=== PATIENT | male | born 1975 | race Caucasian/White ===

== ENCOUNTER 2023-04-27 11:10 | Emergency (ER) | payer OTHER, SELFPAY ==
--- NOTE | ~2023-04-27 | XR_ITS ---
EXAMINATION: XR RIBS, LEFT CLINICAL INFORMATION: Pain, status post fall on ribs COMPARISON: AP portable chest 03/10/2020 TECHNIQUE: PA view the chest and 3 views of the left ribs were obtained. FINDINGS: Lungs are clear. No consolidation, pneumothorax, or pleural effusion. The cardiomediastinal silhouette and pulmonary vasculature are normal. Radiopaque skin marker is placed at the level of the distal aspect of the 11th and 12th left ribs. Question of nondisplaced fractures of the distal 11th and 12th ribs. XR/XR ribs LT min 3V w CXR1V IMPRESSION: Question of nondisplaced fractures of the distal 11th and 12th ribs.
--- NOTE | ~2023-04-27 | XR_ITS ---
EXAMINATION: XR ANKLE, LEFT CLINICAL INFORMATION: Pain, status post fall COMPARISON: None available. TECHNIQUE: AP, lateral, and mortise views of the left ankle. FINDINGS: No fracture. Alignment is anatomic. No erosions. Joint spaces are maintained. Soft tissue swelling is seen about the ankle. XR/XR ankle LT min 3V IMPRESSION: No bony abnormality.
--- NOTE | ~2023-04-27 | XR_ITS ---
EXAMINATION: XR FOOT, LEFT CLINICAL INFORMATION: Foot pain and swelling COMPARISON: None available. TECHNIQUE: AP, lateral, and oblique views of the left foot. FINDINGS: The bones and soft tissues are normal. No fracture. Alignment is anatomic. Joint spaces are maintained. XR/XR foot LT min 3V IMPRESSION: Unremarkable plain radiographs of the left foot.
--- NOTE | ~2023-04-27 | CT_ITS ---
Examination: CT chest, abdomen and pelvis with IV contrast. COMPARISON: Left upper quadrant abdominal pain. Fall with ecchymosis. Rule out rib fracture COMPARISON: Chest x-ray 04/27/2023. MRI abdomen 06/29/2018. TECHNIQUE: 5 mm thin and reformatted 3 minutes thin sagittal and coronal images of chest, abdomen and pelvis were obtained following IV 85 mL Omnipaque 350. DLP 753. This CT examination was performed using dose optimization technique as appropriate, variously including the following: Automated exposure control Adjustment of MA and/or KV according to patient size(this includes techniques or standardized protocols for targeted exams where dose is matched to indication/reason for exam; extremities or head. Use of iterative reconstruction techniques. FINDINGS: CHEST: LUNGS: The lungs are well-expanded and clear of acute process. No pulmonary nodules, mass or consolidation seen. Mediastinum: The thyroid lobes are symmetric and normal. The central trachea and the bronchi widely patent. Heart size and the great vessels are normal caliber. No pericardial effusion seen. No abnormal size mediastinal or hilar lymph nodes seen. Pleura: There is no pleural effusion, thickening or calcification. Axilla: There is no abnormal axillary lymph nodes. The chest wall appears unremarkable. Osseous structures: There is a nondisplaced left lateral 10th rib fracture best visualized on sagittal view 02/28. Abdomen and pelvis: Liver, ducts and gallbladder: The liver is normal size, contour and density. No focal contusion, lesion or intrahepatic ductal dilatation seen. The gallbladder is unremarkable. Spleen: Surgically absent. Pancreas: Unremarkable. Adrenal glands: Unremarkable. Kidneys and ureters: Both kidney nephrograms are symmetrical in size, shape and position. No radiopaque renal calculi, hydroureter or hydronephrosis seen. Lymphovascular structures: Unremarkable. Abdominal wall: Unremarkable. GI tract: There is moderate scattered stool seen throughout the colon without significant distention. The small bowel loops are normal caliber. Appendix is not visualized. Pelvis: The urinary bladder is mildly distended without any radiopaque calculi bladder wall thickening. The prostate gland is minimally prominent with central gland calcification. No free air or free fluid seen. Small shotty inguinal lymph nodes are seen bilaterally. Osseous structures: No visible acute fracture or dislocation seen. CT/CT abdomen pelvis w IV con IMPRESSION: 1. Nondisplaced left lateral 10th rib fracture. 2. The lungs are clear. 3. There is no acute intra-abdominal process seen. 4. Mild constipation.
[2023-04-27 11:19] VITALS: BP 126/71; PULSE 97; RESP 20; TEMP 36.7; O2SAT 93; BMI 24.7
--- NOTE | 2023-04-27 11:20 | ED_ITS ---
HPI - Fall General Chief Complaint: Extremity Injury, Lower Stated Complaint: L Side Pain Diff Breathing S/P Fall 04/26/23 Time Seen by Provider: 04/27/23 13:25 Source: patient, family, RN notes reviewed and old records reviewed Mode of arrival: ambulatory History of Present Illness HPI Narrative: 47-year-old male with past medical history splenectomy, presenting to the ED complaining of left foot/ankle and left side/rib cage pain s/p falling out of boat early this morning around 02:00AM. Admits was getting down/out of boat, jumped down and twisted ankle then fell onto hitch on left side. Denies head trauma or LOC. takes baby ASA, denies other anticoagulation. Reports pain worse with palpation, movement and breathing. Denies headache, neck pain, SOB, nausea/vomiting, dysuria, incontinence MD complaint: fall Onset (ago): day(s) Related Data Previous Rx's Medication Instructions Recorded hydrocodone 5 mg-acetaminophen 325 1 tab PO Q8H PRN pain, severe 3 04/27/23 mg tablet days #9 tabs lidocaine 5 % topical patch 1 patch topical DAILY PRN pain #30 04/27/23 (Lidoderm) ea Allergies Allergy/AdvReac Type Severity Reaction Status Date / Time No Known Allergies Allergy Unverified 06/06/20 14:56 [No Known Allergies*] Review of Systems Review of Systems: Constitutional: No Fever, No Chills, No Malaise ENT/Mouth: No Ear Pain, No Nasal Congestion,No sore throat, No Rhinorrhea, No Swallowing Difficulty Eyes: No Eye Pain, No Swelling, No Redness, No Foreign Body, No Vision Changes Cardiovascular: No Chest Pain, No SOB Respiratory: No Cough, No Sputum, No Dyspnea Gastrointestinal: No Nausea, No Vomiting, No Diarrhea, No Constipation, + Abdominal pain Genitourinary: No Dysuria, No Hematuria, No Urinary Incontinence/retention, No Flank Pain Musculoskeletal: + joint pain, + Myalgias, + Joint Swelling Skin: No Skin Lesions, No rash Neuro: No Weakness, No Numbness, No Paresthesias, No Loss of Consciousness, No Dizziness, No Headache Yes all other systems are reviewed and are negative Constitutional: Constitutional: Reports as per HPI Neurologic: Denies Abnormal speech present PMFSH Past Medical History Attestation statement: The following information was validated with the patient. Source: old records reviewed Social History Social History Advance Directives: No Physical Exam 2 Vital Signs: Vital Signs: Last Vital Signs Temp 97.9 F 04/27/23 16:56 Pulse 73 04/27/23 16:56 Resp 16 04/27/23 16:56 BP 122/81 04/27/23 16:56 Pulse Ox 98 04/27/23 16:56 O2 Del Method Room Air 04/27/23 16:56 BMI result Body Mass Index 24.7 Const: Other: Appears uncomfortable General: cooperative, healthy appearing, no acute distress, alert and awake Orientation/consciousness: patient oriented x3 Limitations: no limitations HEENT: Head: Yes normal to inspection and Yes atraumatic Ears: hearing grossly normal bilaterally General nose exam: Normal external nose present Face and sinus: Yes normal facial exam Throat: Yes posterior oropharynx normal and Yes uvula midline Eyes: General: appearance normal, both eyes and all related structures EOM: EOMs intact bilaterally Neck: Neck: Yes normal visual inspection, Yes no meningeal signs, No anterior neck swelling and No torticollis Chest: Other: + left posterior lateral rib ecchymosis noted with palpable hematoma and tenderness. No fluctuance. No flail chest. Chest palpation & inspection: no crepitus Resp: Effort & Inspection: normal respiratory effort and no respiratory dist ress Auscultation: clear to auscultation bilaterally Cardio: Rate: regular rate Heart sounds: S1 normal heart sound present and S2 normal heart sound present GI: Other: Healing ecchymosis noted to left lower quadrant/lower abdomen Inspection: Yes normal to inspection Palpation (GI): Soft to palpation, Tenderness to palpation present (GI) in the epigastrum and in the LUQ; with no rebound tenderness, no guarding and not rigid : General: Yes CVA tenderness on the left Back/Spine/Pelvis: Other: No midline cervical/thoracic/lumbar spinous tenderness/step-off or deformity Back: CVA tenderness Skin: Rashes: no rashes Wounds: no wounds Neuro: General: patient oriented x3, tone normal, moves all extremities, no meningeal signs, no focal motor deficits and CN's II-XI intact bilaterally Cranial nerves: Yes CN's II-XII intact bilaterally Cognition (Neuro): normal cognition Speech: No Abnormal speech present Gait exam (Neuro): Normal gait present Motor exam (neuro): 5/5 motor strength present throughout Extrem: Other: Left foot and ankle noted swelling and diffuse tenderness. Neurovascular intact. Limited ROM secondary to pain. Knee/tib-fib nontender Course Course Course Narrative: RME - 47 y/o male with history of seizures, CVA, HTN, asthma, HLD, s/p splenectomy in the past who presents to the ER for evaluation of left sided rib pain and left ankle pain after a fall getting off of his boat yesterday. No head strike or LOC. SpO2 92-95% in triage. Speaking in complete sentences, pain with deep inspiration. Plan: XR left ribs, XR left ankle XR ribs LT min 3V w CXR1V IMPRESSION: Question of nondisplaced fractures of the distal 11th and 12th ribs. XR foot LT min 3V IMPRESSION: Unremarkable plain radiographs of the left foot. XR ankle LT min 3V IMPRESSION: No bony abnormality. -labs reassuring >> Johnathan wrap applied in supplied with crutches -1900--CT chest w IV/CT abdomen pelvis w IV con con IMPRESSION: 1.? Nondisplaced left lateral 10th rib fracture. 2.? The lungs are clear. 3.? There is no acute intra-abdominal process seen. 4.? Mild constipation. Results discussed with patient including worrisome signs and symptoms and strict return precautions, and when to return to the emergency department. They verbalized understanding and feel safe for discharge at this time. Medications Administered Discontinued Medications Generic Name Dose Route Start Last Admin Trade Name Tami PRN Reason Stop Dose Admin Sodium Chloride 1,000 mls @ 999 mls/hr 04/27/23 16:15 04/27/23 18:08 Ns IV 04/27/23 17:15 Infused .Q1H1M JUAN Infusion Iohexol 100 ml 04/27/23 17:35 04/27/23 17:36 Iohexol 350 Mg/Ml 100 Ml Infus..Btl IV 04/27/23 17:36 85 ml ONCE ONE Administration Morphine Sulfate 2 mg 04/27/23 16:14 04/27/23 16:17 Morphine Sulfate 2 Mg/Ml Cartridge IVPUSH 04/27/23 16:15 2 mg ONCE ONE Administration Protocol Medical Decision Making Medical Decision Making [facility] Narrative: 47-year-old male with past medical history splenectomy, presenting to the ED complaining of left foot/ankle and left side/rib cage pain s/p falling out of boat early this morning around 02:00AM. On exam vital signs stable, NAD, appea rs uncomfortable, physical exam as noted above with ecchymosis to left posterior lateral rib/flank and abdomen with tenderness, abdomen soft with LUQ tenderness, no rebound or guarding, no focal neuro deficits. Concern for rib fractures vs hematoma/intrathoracic bleeding vs intra-abdominal injury vs ankle fracture versus sprain Plan: Labs, UA, CXR-ordered in triage, CT chest/abdomen/pelvis, pain control Please refer to course for remaining clinical decision making, interpretation of labs/imaging results, and discussions with consultants and/or family members. Differential Diagnosis Differential Diagnoses: The differential diagnosis associated with the presentation includes As above Admission/Observation Consideration of admission/observation: Escalation of care including admission/observation considered Lab Data [facility] Lab Attestation statement: I reviewed the patient's lab results. 04/27/23 14:42 04/27/23 14:42 Labs: Lab Results 04/27/23 04/27/23 04/27/23 Range/Units 14:42 15:33 16:10 WBC 9.5 (4.8-10.8) X10*3/uL RBC 4.04 L (4.60-5.80) X10*6/uL Hgb 12.1 L (14.0-18.0) g/dl Hct 36.6 L (42.0-52.0) % MCV 90.6 (80.0-98.0) fL MCH 30.0 (27.0-33.0) pg MCHC 33.1 (31.0-36.0) g/dl RDW 16.9 H (11.0-16.0) % Plt Count 410 H (160-400) X10*3/uL MPV 9.1 L (9.4-12.4) fL Immature Gran % (Auto) 0.3 (0.0-0.4) % Neut % (Auto) 62.9 (45-73) % Lymph % (Auto) 26.5 (20-40) % [place] % (Auto) 7.7 (2-11) % Eos % (Auto) 2.1 (0-4) % Baso % (Auto) 0.5 (0-2) % Lymph # (Auto) 2.5 (1.2-4.9) X10*3/uL [place] # (Auto) 0.7 (0.1-1.2) X10*3/uL Eos # (Auto) 0.2 (0.0-0.4) X10*3/uL Baso # (Auto) 0.1 (0.0-0.2) X10*3/uL Abs Immat Gran (auto) 0.03 (0.00-0.03) X10*3/uL Absolute Neuts (auto) 6.0 (2.0-8.3) x10*3/uL Absolute Nucleated RBC 0.000 (0.0-0.012) X10*3/uL Nucleated RBC % (auto) 0.0 (0.0-0.2) /100WBC PT (11.1-13.3) SEC INR (0.9-1.1) Sodium 138 (135-145) mmol/L Potassium 4.7 (3.3-5.1) mmol/L Chloride 105 (96-108) mmol/L Carbon Dioxide 22 (22-29) mmol/L Anion Gap 16 (12-20) BUN 9 (9-16) mg/dL Creatinine 0.69 (0.5-1.4) mg/dL Estim Creat Clear Calc 125.0 Estimated GFR > 60 Random Glucose 101 (60-115) mg/dL Calcium 9.6 (8.4-10.2) mg/dL Total Bilirubin 0.3 (0.0-1.0) mg/dL Direct Bilirubin 0.1 (0.0-0.5) mg/dL AST 24 (5-37) U/L ALT 16 (0-40) U/L Alkaline Phosphatase 92 (39-117) U/L Total Protein 8.5 H (6.5-8.0) g/dL Albumin 4.2 (3.5-5.0) g/dL Lipase 19 (8-78) U/L Urine Color Dark Yellow Urine Appearance Turbid Urine pH 7.5 (5.0-9.0) Ur Specific [place] 1.020 (1.005-1.025) Urine Protein Negative (Neg-Trace) mg/dL Urine Glucose (UA) Negative (Negative) mg/dL Urine Ketones Negative (Negative) mg/dL Urine Blood Negative (Negative) Urine Nitrite Negative (Negative) Ur Leukocyte Esterase Negative (Negative) 04/27/23 Range/Units 16:10 WBC (4.8-10.8) X10*3/uL RBC (4.60-5.80) X10*6/uL Hgb (14.0-18.0) g/dl Hct (42.0-52.0) % MCV (80.0-98.0) fL MCH (27.0-33.0) pg MCHC (31.0-36.0) g/dl RDW (11.0-16.0) % Plt Count (160-400) X10*3/uL MPV (9.4-12.4) fL Immature Gran % (Auto) (0.0-0.4) % Neut % (Auto) (45-73) % Lymph % (Auto) (20-40) % [place] % (Auto) (2-11) % Eos % (Auto) (0-4) % Baso % (Auto) (0-2) % Lymph # (Auto) (1.2-4.9) X10*3/uL [place] # (Auto) (0.1-1.2) X10*3/uL Eos # (Auto) (0.0-0.4) X10*3/uL Baso # (Auto) (0.0-0.2) X10*3/uL Abs Immat Gran (auto) (0.00-0.03) X10*3/uL Absolute Neuts (auto) (2.0-8.3) x10*3/uL Absolute Nucleated RBC (0.0-0.012) X10*3/uL Nucleated RBC % (auto) (0.0-0.2) /100WBC PT 12.8 (11.1-13.3) SEC INR 1.1 (0.9-1.1) Sodium (135-145) mmol/L Potassium (3.3-5.1) mmol/L Chloride (96-108) mmol/L Carbon Dioxide (22-29) mmol/L Anion Gap (12-20) BUN (9-16) mg/dL Creatinine (0.5-1.4) mg/dL Estim Creat Clear Calc Estimated GFR Random Glucose (60-115) mg/dL Calcium (8.4-10.2) mg/dL Total Bilirubin (0.0-1.0) mg/dL Direct Bilirubin (0.0-0.5) mg/dL AST (5-37) U/L ALT (0-40) U/L Alkaline Phosphatase (39-117) U/L Total Protein (6.5-8.0) g/dL Albumin (3.5-5.0) g/dL Lipase (8-78) U/L Urine Color Urine Appearance Urine pH (5.0-9.0) Ur Specific [place] (1.005-1.025) Urine Protein (Neg-Trace) mg/dL Urine Glucose (UA) (Negative) mg/dL Urine Ketones (Negative) mg/dL Urine Blood (Negative) Urine Nitrite (Negative) Ur Leukocyte Esterase (Negative) Radiology Impression Discussion of test interpretation with radiology: I have reviewed the radio logist's reading. Independent Historian Clinical information obtained from an independent historian. History obtained from or confirmed by: Other (aunt) External Record Review External record reviewed: Inpatient record, Office record, Outpatient record, Prior outpatient labs, Prior outpatient radiology, Primary care record and Outside ED record Tests considered The following testing was considered but not selected: As above Prescription Management I considered prescription management with: Pain Medication Discharge Plan Discharge Clinical Impression: Closed rib fracture, Ankle sprain and strain Patient Disposition: Home, Self-Care Instructions: Ankle Sprain (DC), Rib Fracture (ED) Additional Instructions: Your blood work is reassuring. your CT scan shows a 10th rib fracture which is nondisplaced You sprained your ankle/foot, wear Johnathan wrap and use crutches as needed. Ice and elevate It is important for you to continue to take deep breaths or you can develop pneumonia Redbird is no opiate pain medication, take only when pain is severe for the next 3 days. Be aware this has Tylenol mixed in do not exceed 4 g of Tylenol in 1 day In addition take ibuprofen and use Lidoderm patches If pain persist or worsen your fever, productive cough return to the ED Prescriptions: New hydrocodone-acetaminophen 5-325 mg tablet 1 tab PO Q8H PRN (Reason: pain, severe) 3 Days Qty: 9 0RF Rx Instructions: Partial Fill upon patient request. lidocaine [Lidoderm] 5 % adhesive patch,medicated 1 patch topical DAILY MDD remove after 12 hours PRN (Reason: pain) Qty: 30 0RF Rx Instructions: leave on most painful area for up to 12 hrs Referrals: Matthew Duckworth MD [Primary Care Provider] -
--- NOTE | 2023-04-27 14:59 | PC.NURSE ---
iv placed labs sent- st awaiting CT w/ IV con
[2023-04-27 16:05] LABS: Appearance Urine Turbid; Color Urine Dark Yellow; Glucose Urine UA Negative (Negative); Leukocyte Esterase Urine Negative (Negative); Nitrite Urine Negative (Negative); PH 7.5 (5.0-9.0); Urine Blood Negative (Negative); Urine Ketones Negative (Negative); Urine Protein Negative (Neg-Trace)
[2023-04-27] MEDS: Morphine Sulfate 2 MG/ML CARTRIDGE IVPUSH (16:17)
[2023-04-27] MEDS: 0.9 % Sodium Chloride 1,000 ML 999 ML IV (16:17)
[2023-04-27 16:22] LABS: Basophils Absolute Auto 0.1 X10*3/uL (0.0-0.2); Basophils Percent Auto 0.5 % (0-2); Eosinophils Absolute Auto 0.2 X10*3/uL (0.0-0.4); Eosinophils Percent Auto 2.1 % (0-4); Hematocrit 36.6 % (42.0-52.0); Hemoglobin 12.1 g/dl (14.0-18.0); Imm Gran Abs Auto 0.03 X10*3/uL (0.00-0.03); Imm Gran Pct Auto 0.3 % (0.0-0.4); Lymphocytes Absolute Auto 2.5 X10*3/uL (1.2-4.9); Lymphocytes Percent Auto 26.5 % (20-40); Mean Corpuscular HGB Conc 33.1 g/dl (31.0-36.0); Mean Corpuscular Volume 90.6 fL (80.0-98.0); Mean Platelet Volume 9.1 fL (9.4-12.4); Monocytes Absolute Auto 0.7 X10*3/uL (0.1-1.2); Monocytes Percent Auto 7.7 % (2-11); Neutrophils Percent Auto 62.9 % (45-73); Platelet Count 410 X10*3/uL (160-400); Red Blood Count 4.04 X10*6/uL (4.60-5.80); Red Cell Distribution Width 16.9 % (11.0-16.0); White Blood Count 9.5 X10*3/uL (4.8-10.8)
[2023-04-27 16:38] LABS: INTERNATIONAL NORM RATIO 1.1 (0.9-1.1); Prothrombin Time 12.8 SEC (11.1-13.3)
[2023-04-27 16:56] VITALS: BP 122/81; PULSE 73; RESP 16; TEMP 36.6; O2SAT 98
[2023-04-27 17:23] LABS: Alanine Aminotransferase 16 U/L (0-40); Albumin Level 4.2 g/dL (3.5-5.0); Alkaline Phosphatase 92 U/L (39-117); Anion Gap 16 (12-20); Aspartate Amino Transferase 24 U/L (5-37); Bilirubin Direct 0.1 mg/dL (0.0-0.5); Bilirubin Total 0.3 mg/dL (0.0-1.0); Blood Urea Nitrogen 9 mg/dL (9-16); Calcium 9.6 mg/dL (8.4-10.2); Carbon Dioxide 22 mmol/L (22-29); Chloride 105 mmol/L (96-108); Estimated Glomerular Filt Rate > 60; Glucose Random 101 mg/dL (60-115); Lipase 19 U/L (8-78); Potassium 4.7 mmol/L (3.3-5.1); Sodium 138 mmol/L (135-145); Total Protein 8.5 g/dL (6.5-8.0)
[2023-04-27] MEDS: iohexoL 350 MG/ML 100 ML INFUS..BTL IV (17:36)
[2023-04-27 17:53] LABS: MANUAL DIFF FLAG NO
[2023-04-27 19:12] VITALS: BP 131/81; PULSE 76; RESP 16; TEMP 36.5; O2SAT 96
== END 2023-04-27 19:26 | disposition home or self-care (01) ==
PROVIDERS: Physician Assistant; Emergency Provider Emergency Medicine; PCP Internal Medicine
DX: S22.32XA Fracture of one rib, left side, initial encounter for closed fracture (principal); S93.402A Sprain of unspecified ligament of left ankle, initial encounter; R07.81 Pleurodynia; M25.572 Pain in left ankle and joints of left foot; R10.12 Left upper quadrant pain; R06.02 Shortness of breath; R11.2 Nausea with vomiting, unspecified; V92.09XA Drowning and submersion due to fall off unspecified watercraft, initial encounter; Y93.9 Activity, unspecified; Y92.9 Unspecified place or not applicable; Y99.9 Unspecified external cause status; Z79.899 Other long term (current) drug therapy
CPT/HCPCS: 36415; 71101; 71260; 73610; 73630; 74177; 80048; 80076; 81003; 83690; 85025; 85610; 96361; 96374; 99284; J2270; Q9967

== ENCOUNTER 2023-05-01 02:45 | Emergency (ER) | payer OTHER, SELFPAY ==
--- NOTE | ~2023-05-01 | XR_ITS ---
EXAMINATION: XR CHEST CLINICAL INFORMATION: Shortness of breath COMPARISON: Previous chest CT 04/27/2023 and chest x-ray from the same day TECHNIQUE: 2 views of the chest were obtained. FINDINGS: The cardiac and mediastinal contours are normal. The lungs are clear. No pleural effusion or pneumothorax. Nondisplaced left anterior lateral 10th rib fracture. XR/XR chest 2V IMPRESSION: No evidence for acute disease in the chest. Nondisplaced left anterior lateral 10th rib fracture unchanged.
--- NOTE | ~2023-05-01 | XR_ITS ---
EXAMINATION: XR TIBIA AND FIBULA, LEFT CLINICAL INFORMATION: Fall COMPARISON: None available. TECHNIQUE: AP and lateral views of the left tibia and fibula were obtained. FINDINGS: The bones and soft tissues are normal. No fracture. No osseous lesions. XR/XR tibia fibula LT 2V IMPRESSION: Normal left tibia and fibula.
[2023-05-01 02:55] VITALS: BP 140/102; PULSE 96; O2SAT 97
[2023-05-01 02:56] VITALS: BP 117/78; PULSE 84; RESP 15; TEMP 36.8; O2SAT 98
[2023-05-01 03:05] VITALS: BP 117/78; PULSE 85; RESP 20; TEMP 36.1; O2SAT 97; BMI 25.5
[2023-05-01 05:46] VITALS: BP 96/48; PULSE 76; RESP 16; TEMP 36.8; O2SAT 100
--- NOTE | 2023-05-01 06:32 | ED.SOB ---
HPI - SOB/Dyspnea General Chief Complaint: Dyspnea Stated Complaint: SOB Time Seen by Provider: 05/01/23 06:31 Source: patient, EMS, RN notes reviewed and old records reviewed Mode of arrival: EMS History of Present Illness HPI Narrative: 47-year-old male with a past medical history of splenectomy, presenting to the ED complaining of continued left foot/ankle and left-sided rib pain s/p mechanical trip and fall on 04/27/23. Patient was seen and treated in our ED on 04/27, had x-rays and CT chest/abdomen pelvis showing left 10th rib fracture, prescribed [place] and Lidoderm patch without relief. Denies more recent injury/trauma or fall, cough, fever/chills, abdominal pain, SOB Related Data Previous Rx's Medication Instructions Recorded hydrocodone 5 mg-acetaminophen 325 1 tab PO Q8H PRN pain, severe 3 04/27/23 mg tablet days #9 tabs lidocaine 5 % topical patch 1 patch topical DAILY PRN pain #30 04/27/23 (Lidoderm) ea Allergies Allergy/AdvReac Type Severity Reaction Status Date / Time No Known Allergies Allergy Unverified 06/06/20 14:56 [No Known Allergies*] Review of Systems Review of Systems: Constitutional: No Fever, No Chills ENT/Mouth: No Ear Pain, No Nasal Congestion, No sore throat, No Rhinorrhea, No Swallowing Difficulty Cardiovascular: + Chest Wall Pain, No SOB Respiratory: No Cough, No Sputum Gastrointestinal: No Nausea, No Vomiting, No Diarrhea, No Constipation, No Abdominal pain Genitourinary:No Urinary Incontinence/retention, No Flank Pain Musculoskeletal: + joint pain, No Myalgias, + Joint Swelling Skin: No Skin Lesions, No rash Neuro: No Weakness, No Numbness, No Paresthesias Yes all other systems are reviewed and are negative Constitutional: Constitutional: Reports as per HPI [facility] Past Medical History Attestation statement: The following information was validated with the patient. Source: old records reviewed Social History Social History Alcohol intake: current Smoked in Last 30 Days: Yes Use of substances other than those prescribed or required for medical reasons: No Advance Directives: No Advance Directives Information Provided: Yes Physical Exam Vital Signs: Vital Signs: Last Vital Signs Temp 98.3 F 05/01/23 05:46 Pulse 76 05/01/23 05:46 Resp 16 05/01/23 05:46 BP 96/48 L 05/01/23 05:46 Pulse Ox 100 05/01/23 05:46 O2 Del Method Room Air 05/01/23 05:46 BMI result Body Mass Index 25.5 Const: General: cooperative, healthy appearing, no acute distress and alert Orientation/consciousness: patient oriented x3 Limitations: no limitations HEENT: Head: Yes normal to inspection and Yes atraumatic Ears: hearing grossly normal bilaterally General nose exam: Normal external nose present Face and sinus: Yes normal facial exam Eyes: General: appearance normal, both eyes and all related structures EOM: EOMs intact bilaterally Neck: Neck: Yes normal visual inspection and Yes no meningeal signs Chest: Other: + healing ecchymosis noted to left posterior & lateral chest wall with tenderness to palpation. erythema or warmth. No flail chest. Chest palpation & inspection: no crepitus and tenderness Resp: Effort & Inspection: normal respiratory effort and no respiratory distress Auscultation: clear to auscultation bilaterally Cardio: Rate: regular rate Heart sounds: S1 normal heart sound present and S2 normal heart sound present Peripheral pulses: Peripheral pulses 2+ throughout GI: Inspection: Yes normal to inspection Palpation (GI): Soft to palpation, nontender, no guarding and not rigid : General: Yes no CVA tenderness Back/Spine/Pelvis: Other: No midline cervical/thoracic/lumbar spinous tenderness/step-off or deformity Back: no CVA tenderness Skin: Rashes: no rashes Wounds: no wounds Neuro: General: patient oriented x3, tone normal, moves all extremities, no meningeal signs, no focal motor deficits and CN's II-XI intact bilaterally Cranial nerves: Yes CN's II-XII intact bilaterally Gait exam (Neuro): Normal gait present Motor exam (neuro): 5/5 motor strength present throughout Extrem: Other: Left ankle and foot with mild swelling > diffuse tenderness to palpation. Neurovascularly intact. Ankle ROM limited secondary to pain. Healing ecchymosis noted to mid tib fib medial aspect with tenderness. Knee nontender. Neurovascularly intact Course Course Course Narrative: -[id number]--no leukocytosis. H&H stable. Labs otherwise reassuring -left tib-fib x-ray unremarkable. Chest x-ray still showing rib fracture, unchanged > on re-evaluation patient is sleeping comfortably. Reports continued pain however on exam lying on left side in structure, sleeping > will re-evaluate in 20 minutes and plan for discharge home with pain control >0811--patient remains sleeping comfortable, stable for discharge at this time Results discussed with patient including worrisome signs and symptoms and strict return precautions, and when to return to the emergency department. They verbalized understanding and feel safe for discharge at this time. Medications Administered Discontinued Medications Generic Name Dose Route Start Last Admin Trade Name Tami PRN Reason Stop Dose Admin Cyclobenzaprine HCl 10 mg 05/01/23 06:42 05/01/23 07:00 Cyclobenzaprine Hcl 10 Mg Tablet PO 05/01/23 06:43 10 mg ONCE ONE Administration Ketorolac Tromethamine 30 mg 05/01/23 06:42 05/01/23 07:00 Ketorolac Tromethamine 30 Mg/Ml Vial IM 05/01/23 06:43 30 mg ONCE ONE Administration Morphine Sulfate 15 mg 05/01/23 06:42 05/01/23 07:00 Morphine Sulfate Immed Release 15 Mg Tablet PO 05/01/23 06:43 15 mg ONCE ONE Administration Medical Decision Making Medical Decision Making MDM Narrative: 47-year-old male with a past medical history of splenectomy, presenting to the ED complaining of continued left foot/ankle and left-sided rib pain s/p mechanical trip and fall on 04/27/23. On exam VSS, NAD, nontoxic appearing, physical exam as noted above, no midline spinous tenderness, abdomen soft/nontender. Imaging reviewed from 04/27. Concern for continued pain from sprain and known fracture. Rule out pneumonia. Lower suspicion for PE/ACS or other injury. No evidence of compartment syndrome or cellulitis Plan: Tib fib x-ray, CXR, labs, pain control Please refer to course for remaining clinical decision making, interpretation of labs/imaging results, and discussions with consultants and/or family members. Differential Diagnosis Differential Diagnoses: The differential diagnosis associated with the presentation includes As above Admission/Observation Consideration of admission/observation: Escalation of care including admission/observation considered Lab Data MDM Lab Attestation statement: I reviewed the patient's lab results. 05/01/23 06:40 05/01/23 06:40 Labs: Lab Results 05/01/23 05/01/23 Range/Units 06:40 06:40 WBC 7.2 (4.8-10.8) X10*3/uL RBC 4.40 L (4.60-5.80) X10*6/uL Hgb 13.2 L (14.0-18.0) g/dl Hct 39.0 L (42.0-52.0) % MCV 88.6 (80.0-98.0) fL MCH 30.0 (27.0-33.0) pg MCHC 33.8 (31.0-36.0) g/dl RDW 17.1 H (11.0-16.0) % Plt Count 508 H (160-400) X10*3/uL MPV 8.8 L (9.4-12.4) fL Immature Gran % (Auto) 0.4 (0.0-0.4) % Neut % (Auto) 44.5 L (45-73) % Lymph % (Auto) 41.7 H (20-40) % [place] % (Auto) 6.5 (2-11) % Eos % (Auto) 6.2 H (0-4) % Baso % (Auto) 0.7 (0-2) % Lymph # (Auto) 3.0 (1.2-4.9) X10*3/uL [place] # (Auto) 0.5 (0.1-1.2) X10*3/uL Eos # (Auto) 0.5 H (0.0-0.4) X10*3/uL Baso # (Auto) 0.1 (0.0-0.2) X10*3/uL Abs Immat Gran (auto) 0.03 (0.00-0.03) X10*3/uL Absolute Neuts (auto) 3.2 (2.0-8.3) x10*3/uL Absolute Nucleated RBC 0.000 (0.0-0.012) X10*3/uL Nucleated RBC % (auto) 0.0 (0.0-0.2) /100WBC Sodium 144 (135-145) mmol/L Potassium 3.5 D (3.3-5.1) mmol/L Chloride 111 H (96-108) mmol/L Carbon Dioxide 20 L (22-29) mmol/L Anion Gap 17 (12-20) BUN 7 L (9-16) mg/dL Creatinine 0.70 (0.5-1.4) mg/dL Estim Creat Clear Calc 123.2 Estimated GFR > 60 Random Glucose 89 (60-115) mg/dL Calcium 9.2 (8.4-10.2) mg/dL Total Bilirubin 0.2 (0.0-1.0) mg/dL AST 18 (5-37) U/L ALT 14 (0-40) U/L Alkaline Phosphatase 93 (39-117) U/L Total Protein 8.1 H (6.5-8.0) g/dL Albumin 4.3 (3.5-5.0) g/dL Independent Interpretation I performed an independent interpretation of an: Plain X-Ray Radiology Impression Discussion of test interpretation with radiology: I have reviewed the radiologist's reading. Independent Historian Clinical information obtained from an independent historian. History obtained from or confirmed by: EMS External Record Review External record reviewed: Inpatient record, Office record, Outpatient record, Prior outpatient labs, Prior outpatient radiology, Primary care record and Outside ED record Tests considered The following testing was considered but not selected: As above Prescription Management I considered prescription management with: Pain Medication Discharge Plan Discharge Clinical Impression: Fracture of rib, Musculoskeletal pain Patient Disposition: Home, Self-Care Prescriptions: No Action hydrocodone-acetaminophen 5-325 mg tablet 1 tab PO Q8H PRN (Reason: pain, severe) 3 Days Qty: 9 0RF Rx Instructions: Partial Fill upon patient request. lidocaine [Lidoderm] 5 % adhesive patch,medicated 1 patch topical DAILY MDD remove after 12 hours PRN (Reason: pain) Qty: 30 0RF Rx Instructions: leave on most painful area for up to 12 hrs Referrals: Brittnee Carrasco MD [Primary Care Provider] - 3 days
[2023-05-01 06:44] LABS: MANUAL DIFF FLAG NO
[2023-05-01 06:45] LABS: Basophils Absolute Auto 0.1 X10*3/uL (0.0-0.2); Basophils Percent Auto 0.7 % (0-2); Eosinophils Absolute Auto 0.5 X10*3/uL (0.0-0.4); Eosinophils Percent Auto 6.2 % (0-4); Hemoglobin 13.2 g/dl (14.0-18.0); Imm Gran Abs Auto 0.03 X10*3/uL (0.00-0.03); Imm Gran Pct Auto 0.4 % (0.0-0.4); Lymphocytes Percent Auto 41.7 % (20-40); Mean Corpuscular HGB Conc 33.8 g/dl (31.0-36.0); Mean Corpuscular Volume 88.6 fL (80.0-98.0); Mean Platelet Volume 8.8 fL (9.4-12.4); Monocytes Absolute Auto 0.5 X10*3/uL (0.1-1.2); Monocytes Percent Auto 6.5 % (2-11); Neutrophils Absolute Auto 3.2 x10*3/uL (2.0-8.3); Neutrophils Percent Auto 44.5 % (45-73); Platelet Count 508 X10*3/uL (160-400); Red Cell Distribution Width 17.1 % (11.0-16.0); White Blood Count 7.2 X10*3/uL (4.8-10.8)
[2023-05-01 06:59] LABS: Alanine Aminotransferase 14 U/L (0-40); Albumin Level 4.3 g/dL (3.5-5.0); Alkaline Phosphatase 93 U/L (39-117); Anion Gap 17 (12-20); Aspartate Amino Transferase 18 U/L (5-37); Bilirubin Total 0.2 mg/dL (0.0-1.0); Blood Urea Nitrogen 7 mg/dL (9-16); Calcium 9.2 mg/dL (8.4-10.2); Carbon Dioxide 20 mmol/L (22-29); Chloride 111 mmol/L (96-108); Creatinine Clr Calc Pharmacy 123.2; Estimated Glomerular Filt Rate > 60; Glucose Random 89 mg/dL (60-115); Potassium 3.5 mmol/L (3.3-5.1); Sodium 144 mmol/L (135-145); Total Protein 8.1 g/dL (6.5-8.0)
[2023-05-01] MEDS: Ketorolac Tromethamine 30 MG/ML VIAL IM (07:00)
[2023-05-01] MEDS: Cyclobenzaprine HCl 10 MG TABLET PO (07:00)
[2023-05-01] MEDS: Morphine Sulfate Immed Release 15 MG TABLET PO (07:00)
--- NOTE | 2023-05-01 07:02 | PC.NURSE ---
Resumed care of patient this morning, he is currently a/ox4. 06/29 pain reported, medicated with pain medications ordered by provider. Other rosa warm blanket given, Po liquids given per request. All other needs met at this time, awaiting xray
== END 2023-05-01 09:13 | disposition home or self-care (01) ==
PROVIDERS: Emergency Provider Emergency Medicine; PCP Internal Medicine
DX: R06.02 Shortness of breath (principal); S22.32XD Fracture of one rib, left side, subsequent encounter for fracture with routine healing; X58.XXXD Exposure to other specified factors, subsequent encounter; M79.18 Myalgia, other site; M25.572 Pain in left ankle and joints of left foot
CPT/HCPCS: 36415; 71046; 73590; 80053; 85025; 96372; 99284; J1885

== ENCOUNTER 2024-05-12 04:30 | Emergency (ER) | payer OTHER, SELFPAY ==
[2024-05-12] VITALS (7 sets, daily range): BP systolic 128–150; BP diastolic 75–92; PULSE 69–92; RESP 16–18; TEMP 36.6–36.9; O2SAT 95–100; BMI 26.7
--- NOTE | 2024-05-12 | ECG_ITS ---
Test Reason : CHEST PAIN Blood Pressure : / mmHG Vent. Rate : 086 BPM Atrial Rate : 086 BPM P-R Int : 154 ms QRS Dur : 092 ms QT Int : 392 ms P-R-T Axes : 072 060 064 degrees QTc Int : 469 ms Normal sinus rhythm Normal ECG When compared with ECG of 26-MAR-2020 01:44, Nonspecific T wave abnormality no longer evident in Inferior leads Nonspecific T wave abnormality no longer evident in Lateral leads Heart rate has decreased Referred By: Generic ED Physician Electronically Signed By:JOSE CARLOS WILEY
[2024-05-12 05:15] LABS: Basophils Absolute Auto 0.1 X10*3/uL (0.0-0.2); Basophils Percent Auto 0.9 % (0-2); Eosinophils Absolute Auto 0.1 X10*3/uL (0.0-0.4); Eosinophils Percent Auto 1.1 % (0-4); Hematocrit 33.2 % (42.0-52.0); Hemoglobin 11.2 g/dl (14.0-18.0); Imm Gran Abs Auto 0.03 X10*3/uL (0.00-0.03); Imm Gran Pct Auto 0.3 % (0.0-0.4); Lymphocytes Absolute Auto 1.3 X10*3/uL (1.2-4.9); Lymphocytes Percent Auto 12.6 % (20-40); MANUAL DIFF FLAG NO; Mean Corpuscular HGB Conc 33.7 g/dl (31.0-36.0); Mean Corpuscular Hemoglobin 28.8 pg (27.0-33.0); Mean Corpuscular Volume 85.3 fL (80.0-98.0); Mean Platelet Volume 8.2 fL (9.4-12.4); Monocytes Absolute Auto 0.7 X10*3/uL (0.1-1.2); Monocytes Percent Auto 7.1 % (2-11); Neutrophils Absolute Auto 7.8 x10*3/uL (2.0-8.3); Platelet Count 461 X10*3/uL (160-400); Red Blood Count 3.89 X10*6/uL (4.60-5.80); Red Cell Distribution Width 17.2 % (11.0-16.0)
[2024-05-12 05:24] LABS: Appearance Urine Clear; Color Urine Yellow; Glucose Urine UA Negative (Negative); Leukocyte Esterase Urine Negative (Negative); Nitrite Urine Negative (Negative); Specific Gravity - Urine 1.015 (1.005-1.025); Urine Blood Negative (Negative); Urine Ketones Negative (Negative); Urine Protein Trace mg/dL (Neg-Trace)
--- NOTE | 2024-05-12 05:27 | ED_ITS ---
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 at this time patient does not want to go to detox also complaining of midsternal pain after vomiting no shortness a breath no history of coronary artery disease Related Data Previous Rx's ?Medication ?Instructions ?Recorded hydrocodone 5 mg-acetaminophen 325 1 tab PO Q8H PRN pain, severe 3 04/27/23 mg tablet days #9 tabs lidocaine 5 % topical patch 1 patch topical DAILY PRN pain #30 04/27/23 (Lidoderm) ea ketorolac 10 mg tablet 10 mg PO TID PRN pain 5 days #15 05/01/23 tabs morphine 15 mg immediate release 15 mg PO Q8H PRN pain 3 days #5 05/01/23 tablet tabs Allergies Allergy/AdvReac Type Severity Reaction Status Date / Time No Known Allergies Allergy Verified 05/12/24 04:40 [No Known Allergies*] Review of Systems 2 Review of Systems: Yes all other systems are reviewed and are negative [facility] Social History Social History Alcohol intake: current Advance Directives: No Advance Directives Information Provided: No Physical Exam 2 Vital Signs: Vital Signs: Last Vital Signs Temp 98.4 F 05/12/24 06:20 Pulse 86 05/12/24 06:20 Resp 18 05/12/24 06:20 BP 133/78 05/12/24 06:20 Pulse Ox 98 05/12/24 06:20 O2 Del Method Room Air 05/12/24 06:20 BMI result Body Mass Index 26.7 Appearance: Alert. Oriented X3. No acute distress. Eyes: No pallor or icterus ENT: Pharynx normal. Oral Mucosa moist Neck: Normal inspection. Neck supple. CVS: Normal heart rate and rhythm. Pulses normal. Respiratory: No respiratory distress. Equal air entry bilateral, no wheezing/rales/rhonchi Abdomen: Soft and nontender. Bowel sounds are present, no mass palpable, no CVA tenderness Skin: Skin warm and dry. Normal skin color. Normal skin turgor. Extremities: No lower extremity edema. No calf tenderness Neuro: Oriented X 3. No motor deficit. Tremors++ Medications Administered Discontinued Medications Generic Name Dose Route Start Last Admin Trade Name Tami PRN Reason Stop Dose Admin Sodium Chloride 1,000 mls @ 999 mls/hr 05/12/24 06:05 05/12/24 06:33 Ns IV 05/12/24 07:05 999 mls/hr .Q1H1M ONE Administration Sodium Chloride 1,000 mls @ 999 mls/hr 05/12/24 06:12 05/12/24 06:33 Ns IV 05/12/24 07:12 999 mls/hr .Q1H1M ONE Administration Magnesium Sulfate 2 gm in 50 mls @ 150 mls/hr 05/12/24 06:12 05/12/24 06:33 Magnesium Sulfate/H2o IV 05/12/24 06:31 150 mls/hr ONCE ONE Administration Lorazepam 2 mg 05/12/24 06:05 05/12/24 06:32 Lorazepam 2 Mg/Ml Vial IVPUSH 05/12/24 06:06 2 mg ONCE ONE Administration Ondansetron HCl 4 mg 05/12/24 06:05 05/12/24 06:32 Ondansetron Hcl 4 Mg/2 Ml Vial IVPUSH 05/12/24 06:06 4 mg ONCE ONE Administration Thiamine HCl 100 mg 05/12/24 06:13 05/12/24 06:33 Thiamine Hcl 100 Mg Tablet PO 05/12/24 06:14 100 mg ONCE ONE Administration Medical Decision Making Medical Decision Making [facility] Narrative: Patient's alcoholism with alcohol withdrawal started on IV fluids and Ativan patient at this time does not want to be admitted to go to detox will evaluate patient disposition accordingly started on Ativan according to CIWA scale Differential Diagnosis Differential Diagnoses: The differential diagnosis associated with the presentation includes Admission/Observation Consideration of admission/observation: Escalation of care including admission/observation considered Lab Data [facility] Lab Attestation statement: I reviewed the patient's lab results. 05/12/24 05:11 05/12/24 05:11 Labs: Lab Results 05/12/24 05/12/24 05/12/24 Range/Units 04:54 05:11 05:19 WBC 10.0 (4.8-10.8) X10*3/uL RBC 3.89 L (4.60-5.80) X10*6/uL Hgb 11.2 L (14.0-18.0) g/dl Hct 33.2 L (42.0-52.0) % MCV 85.3 (80.0-98.0) fL MCH 28.8 (27.0-33.0) pg MCHC 33.7 (31.0-36.0) g/dl RDW 17.2 H (11.0-16.0) % Plt Count 461 H (160-400) X10*3/uL MPV 8.2 L (9.4-12.4) fL Immature Gran % (Auto) 0.3 (0.0-0.4) % Neut % (Auto) 78.0 H (45-73) % Lymph % (Auto) 12.6 L (20-40) % [place] % (Auto) 7.1 (2-11) % Eos % (Auto) 1.1 (0-4) % Baso % (Auto) 0.9 (0-2) % Lymph # (Auto) 1.3 (1.2-4.9) X10*3/uL [place] # (Auto) 0.7 (0.1-1.2) X10*3/uL Eos # (Auto) 0.1 (0.0-0.4) X10*3/uL Baso # (Auto) 0.1 (0.0-0.2) X10*3/uL Abs Immat Gran (auto) 0.03 (0.00-0.03) X10*3/uL Absolute Neuts (auto) 7.8 (2.0-8.3) x10*3/uL Absolute Nucleated RBC 0.000 (0.0-0.012) X10*3/uL Nucleated RBC % (auto) 0.0 (0.0-0.2) /100WBC Sodium 136 (135-145) mmol/L Potassium 3.7 (3.3-5.1) mmol/L Chloride 103 (96-108) mmol/L Carbon Dioxide 25 (22-29) mmol/L Anion Gap 12 (12-20) BUN 11 (9-16) mg/dL Creatinine 0.76 (0.5-1.4) mg/dL Estim Creat Clear Calc 112.3 Estimated GFR > 60 Random Glucose 98 (60-115) mg/dL Calcium 8.7 (8.4-10.2) mg/dL Magnesium 1.6 (1.6-2.6) mg/dL Total Bilirubin 0.3 (0.0-1.0) mg/dL AST 27 (5-37) U/L ALT 17 (0-40) U/L Alkaline Phosphatase 101 (39-117) U/L Troponin I High Sens < 2.7 (<3.5-35.0) ng/L Total Protein 7.8 (6.5-8.0) g/dL Albumin 4.0 (3.5-5.0) g/dL Lipase 13 (8-78) U/L Urine Color Yellow Urine Appearance Clear Urine pH 8.0 (5.0-9.0) Ur Specific [place] 1.015 (1.005-1.025) Urine Protein Trace (Neg-Trace) mg/dL Urine Glucose (UA) Negative (Negative) mg/dL Urine Ketones Negative (Negative) mg/dL Urine Blood Negative (Negative) Urine Nitrite Negative (Negative) Ur Leukocyte Esterase Negative (Negative) Urine Opiates Screen Not Detected (Not Detect) Ur Buprenorphine Scrn Not Detected (Not Detect) ng/mL Ur Oxycodone Screen Not Detected (Not Detect) ng/mL Urine Methadone Screen Not Detected (Not Detect) ng/mL Urine Fentanyl Screen POSITIVE H (Not Detect) Ur Barbiturates Screen Not Detected (Not Detect) Ur Phencyclidine Scrn Not Detected (Not Detect) Ur Amphetamines Screen Not Detected (Not Detect) U Benzodiazepines Scrn Not Detected (Not Detect) Urine Cocaine Screen Not Detected (Not Detect) U Marijuana (THC) Screen Not Detected (Not Detect) Ethyl Alcohol < 10 mg/dL Influenza Type A (PCR) NEGATIVE (Negative) Influenza Type B (PCR) NEGATIVE (Negative) RSV RNA Qual (PCR) NEGATIVE (Negative) SARS-CoV-2 RNA (RT-PCR) NEGATIVE (Negative) Independent Interpretation I performed an independent interpretation of an: EKG Interpretation: Normal sinus rhythm heart rate 86 beats per minute normal interval normal axis no acute ST T wave changes no acute ischemia Discharge Plan Discharge Clinical Impression: Alcohol abuse, Alcohol withdrawal Patient Disposition: Still a Patient Prescriptions: No Action hydrocodone-acetaminophen 5-325 mg tablet 1 tab PO Q8H PRN (Reason: pain, severe) 3 Days Qty: 9 0RF Rx Instructions: Partial Fill upon patient request. lidocaine [Lidoderm] 5 % adhesive patch,medicated 1 patch topical DAILY MDD remove after 12 hours PRN (Reason: pain) Qty: 30 0RF Rx Instructions: leave on most painful area for up to 12 hrs ketorolac 10 mg tablet 10 mg PO TID PRN (Reason: pain) 5 Days Qty: 15 0RF morphine 15 mg tablet 15 mg PO Q8H PRN (Reason: pain) 3 Days Qty: 5 0RF Rx Instructions: Partial Fill upon patient request. Print Language: Kiswahili
[2024-05-12 05:28] LABS: Alanine Aminotransferase 17 U/L (0-40); Alkaline Phosphatase 101 U/L (39-117); Anion Gap 12 (12-20); Aspartate Amino Transferase 27 U/L (5-37); Bilirubin Total 0.3 mg/dL (0.0-1.0); Blood Urea Nitrogen 11 mg/dL (9-16); Calcium 8.7 mg/dL (8.4-10.2); Carbon Dioxide 25 mmol/L (22-29); Chloride 103 mmol/L (96-108); Creatinine Clr Calc Pharmacy 112.3; Estimated Glomerular Filt Rate > 60; Glucose Random 98 mg/dL (60-115); Lipase 13 U/L (8-78); Potassium 3.7 mmol/L (3.3-5.1); Sodium 136 mmol/L (135-145); Total Protein 7.8 g/dL (6.5-8.0)
[2024-05-12 05:34] LABS: Amphetamine Screen Urine Not Detected (Not Detect); Barbiturates, Urine Not Detected (Not Detect); Benzodiazepines Screen Urine Not Detected (Not Detect); Buprenorphine Scr Not Detected (Not Detect); Cannabinoid Screen Urine Not Detected (Not Detect); Cocaine Screen Urine Not Detected (Not Detect); Fentanyl, urine POSITIVE (Not Detect); Methadone Screen, Urine Not Detected (Not Detect); Opiate Screen Urine Not Detected (Not Detect); Oxycodone Screen Urine Not Detected (Not Detect); Phencyclidine Screen Urine Not Detected (Not Detect)
[2024-05-12 05:34] LABS: Influenza A PCR NEGATIVE (Negative); Influenza B PCR NEGATIVE (Negative); Resp Syncy Virus RNA Qual PCR NEGATIVE (Negative); SARS COV2 PCR INHOUSE NEGATIVE (Negative)
[2024-05-12 05:39] LABS: Troponin-I High Sensitivity < 2.7 ng/L (<3.5-35.0)
[2024-05-12 06:19] LABS: Magnesium 1.6 mg/dL (1.6-2.6)
[2024-05-12] MEDS: ondansetron HCL 4 MG/2 ML VIAL IVPUSH (06:32)
[2024-05-12] MEDS: LORazepam 2 MG/ML VIAL IVPUSH (06:32)
[2024-05-12 06:33] LABS: Ethanol < 10 mg/dL
[2024-05-12] MEDS: Thiamine HCL 100 MG TABLET PO (06:33)
[2024-05-12] MEDS: 0.9 % Sodium Chloride 1,000 ML 999 ML IV ×2 (06:33)
[2024-05-12] MEDS: Magnesium Sulfate/H2O 2 GM/50 ML PIGGYBACK IV (06:33)
== END 2024-05-12 15:37 | disposition home or self-care (01) ==
PROVIDERS: Emergency Provider Internal Medicine; PCP Internal Medicine
DX: F10.130 Alcohol abuse with withdrawal, uncomplicated (principal); Y90.0 Blood alcohol level of less than 20 mg/100 ml; R11.10 Vomiting, unspecified; R51.9 Headache, unspecified; R25.1 Tremor, unspecified; Z03.818 Encounter for observation for suspected exposure to other biological agents ruled out
CPT/HCPCS: 0241U; 80053; 80307; 81003; 83690; 83735; 84484; 85025; 93005; 96361; 96365; 96375; 99285; J2060; J2405; J3475